=== PATIENT | female | born 1940 | race Two or more races ===

== ENCOUNTER 2023-02-22 11:15 | Inpatient (IN) | payer OTHER ==
[~2023-02-22] VITALS: Ht 160 cm; Wt 63.4 kg
[2023-02-22 11:36] LABS: Basophils # (auto) 0.1 10 ^3/uL (0-0.2); Eosinophils # (auto) 0.2 10 ^3/uL (0-0.8); Eosinophils % (auto) 3.4 % (0.0-7.0); Hematocrit 36.9 % (36.0-46.0); Hemoglobin 12.5 g/dL (12.2-16.2); Lymphocytes # (auto) 1.4 10 ^3/uL (0.4-5.4); Lymphocytes % (auto) 24.5 % (10.0-50.0); Mean Corpuscular Hemoglobin 32.8 pg (28.0-32.0); Mean Corpuscular Hgb Conc. 33.9 g/dL (32.0-36.0); Mean Corpuscular Volume 96.8 fL (80.0-100.0); Monocytes # (auto) 0.3 10 ^3/uL (0-1.3); Monocytes % (auto) 5.5 % (0.0-12.0); Neutrophils # (auto) 3.8 10 ^3/uL (1.6-8.6); Neutrophils % (auto) 65.6 % (37.0-80.0); Nucleated Red Blood Cells % 0.1 %; Red Blood Cells 3.81 10^6/uL (4.0-5.20); Red Cell Distribution Width 14.1 % (11.8-14.3); White Blood Cell 5.8 10^3/uL (4.4-10.8)
[2023-02-22 12:07] LABS: Albumin 3.9 g/dL (3.4-5.0); BUN/Creatinine Ratio 38.3 (10.0-20.0); Bilirubin, Total 0.5 mg/dL (0.2-1.0); Calcium 8.7 mg/dL (8.5-10.1); Magnesium 2.4 mg/dL (1.6-2.6); Total Protein 6.9 g/dL (6.4-8.2)
[2023-02-22 12:35] LABS: Potassium 3.7 mmol/L (3.5-5.1)
[2023-02-22 12:54] LABS: Urine Bacteria NONE SEEN /hpf (None Seen); Urine Blood 2+ /uL (Negative); Urine Specific Gravity 1.015 (1.001-1.035); Urine WBC 28 /hpf (0 - 5)
[2023-02-22] MEDS ORDERED: cefTRIAXone 1GM/50ML D5W 50 ML IV ONE (17:00)
[2023-02-22] MEDS ORDERED: PANT40T PO (17:36)
[2023-02-22] MEDS ORDERED: DONE5TAB80 PO (17:36)
[2023-02-22] MEDS ORDERED: [UNRECOGNIZED DRUG - CODE] EACHEYE (17:36)
[2023-02-22] MEDS ORDERED: BACL10TA PO (17:37)
[2023-02-22] MEDS ORDERED: PRED20TA2 PO (17:37)
[2023-02-22] MEDS ORDERED: AZIT250T9 PO (17:37)
[2023-02-22] MEDS ORDERED: ACETAMINOPHEN 325 MG TAB PO PRN (17:45)
[2023-02-22] MEDS ORDERED: ASPirin 325 MG TAB PO ONE (17:45)
[2023-02-22] MEDS ORDERED: MORPHINE SULFATE INJ 2 MG/ml SYRG IV PRN (17:45)
[2023-02-22] MEDS ORDERED: NITROGLYCERIN 0.4 MG SL TAB SL PRN (17:45)
[2023-02-22] MEDS: ASPirin 81 mg TAB PO SCH (17:54)
[2023-02-22] MEDS: SODIUM CHLORIDE 0.9% 1,000 ML IV SCH (17:57)
[2023-02-22] MEDS ORDERED: PRAV20TA3 GT (18:04)
[2023-02-22 19:53] LABS: Cholesterol 164 mg/dL (< 200)
[2023-02-22 19:56] LABS: HDL Cholesterol 76 mg/dL (40-59); LDL Cholesterol 74 mg/dL (< 100); Triglycerides 133 mg/dL (< 150)
[2023-02-22] MEDS: TEMAZEPAM 15 MG CAP PO PRN (23:23)
[2023-02-23 06:27] LABS: Basophils # (auto) 0 10 ^3/uL (0-0.2); Basophils % (auto) 0.9 % (0.0-2.0); Eosinophils # (auto) 0.3 10 ^3/uL (0-0.8); Hematocrit 35.5 % (36.0-46.0); Hemoglobin 11.8 g/dL (12.2-16.2); Lymphocytes # (auto) 1.6 10 ^3/uL (0.4-5.4); Lymphocytes % (auto) 32.9 % (10.0-50.0); Mean Corpuscular Hemoglobin 32.1 pg (28.0-32.0); Mean Corpuscular Hgb Conc. 33.2 g/dL (32.0-36.0); Mean Corpuscular Volume 96.8 fL (80.0-100.0); Monocytes # (auto) 0.4 10 ^3/uL (0-1.3); Monocytes % (auto) 7.5 % (0.0-12.0); Neutrophils # (auto) 2.5 10 ^3/uL (1.6-8.6); Neutrophils % (auto) 51.7 % (37.0-80.0); Red Blood Cells 3.67 10^6/uL (4.0-5.20); White Blood Cell 4.9 10^3/uL (4.4-10.8)
[2023-02-23] MEDS: SODIUM CHLORIDE 0.9% 1,000 ML IV SCH ×2 (06:27→16:20)
[2023-02-23 06:51] LABS: Potassium 3.6 mmol/L (3.5-5.1)
[2023-02-23 07:10] LABS: Albumin 3.3 g/dL (3.4-5.0); BUN/Creatinine Ratio 32.8 (10.0-20.0); Bilirubin, Total 0.5 mg/dL (0.2-1.0); Calcium 8.4 mg/dL (8.5-10.1); Total Protein 6.4 g/dL (6.4-8.2)
[2023-02-23] MEDS: cefTRIAXone 1GM/50ML D5W 50 ML IV SCH (09:40)
[2023-02-23] MEDS: ENOXAPARIN SOD 40 MG/0.4 ML SYRINGE SC SCH (11:22)
[2023-02-23 17:00] VITALS: BP 131/56
[2023-02-23] MEDS: TEMAZEPAM 15 MG CAP PO PRN (21:03)
[2023-02-23 22:30] VITALS: BP 121/44
[2023-02-24 04:44] VITALS: BP 125/52
[2023-02-24] MEDS: ASPirin 81 mg TAB PO SCH (08:59)
[2023-02-24] MEDS: ENOXAPARIN SOD 40 MG/0.4 ML SYRINGE SC SCH (08:59)
[2023-02-24] MEDS: cefTRIAXone 1GM/50ML D5W 50 ML IV SCH (08:59)
[2023-02-24 09:00] VITALS: BP 142/53
[2023-02-24 09:39] LABS: Alcohol, Urine < 3.0 mg/dL (0-10); Amphetamine Screen, Urine NEGATIVE (NEGATIVE); Barbiturate Scree,Urine NEGATIVE (NEGATIVE); Benzodiazephine Screen, Urine NEGATIVE (NEGATIVE); Cannabinoid Screen, Urine NEGATIVE (NEGATIVE); Cocaine Screen, Urine NEGATIVE (NEGATIVE); Opiate Scree,Urine NEGATIVE (NEGATIVE); Phencyclidine Screen, Urine NEGATIVE (NEGATIVE)
[2023-02-24] MEDS ORDERED: CIPR-173 PO (10:23)
== END 2023-02-24 12:09 | disposition home or self-care (01) | DRG 309 ==
LOC: ER 11:15 → TELE 17:35 → TELE-EAST 02-23 15:45
PROVIDERS: ADMIT Nurse Practitioner Family; ATTEND Family Medicine
DX: R00.2 Palpitations (principal); I50.32 Chronic diastolic (congestive) heart failure; N30.00 Acute cystitis without hematuria; Z96.651 Presence of right artificial knee joint; E78.00 Pure hypercholesterolemia, unspecified; E03.9 Hypothyroidism, unspecified; Z87.442 Personal history of urinary calculi; Z88.0 Allergy status to penicillin; Z80.0 Family history of malignant neoplasm of digestive organs
CPT/HCPCS: 36415; 70450; 71045; 80053; 80061; 80307; 81001; 83735; 84443; 84484; 85025; 87086; 87088; 87186; 93005; 93306; 93886; G0378; J0696

== ENCOUNTER → 2024-06-11 | Outpatient (CLI) | payer OTHER ==
[~2024-06-11] MED LIST: AZIT-43 PO; BACL10TA PO; CIPR-173 PO; DONE5TAB80 PO; PANT40T PO; PRAV20TA3 GT; PRED20TA2 PO; [UNRECOGNIZED DRUG - CODE] EACHEYE
[2024-06-11 09:25] LABS: Basophils # (auto) 0 10 ^3/uL (0-0.2); Basophils % (auto) 0.9 % (0.0-2.0); Eosinophils # (auto) 0.3 10 ^3/uL (0-0.8); Eosinophils % (auto) 5.3 % (0.0-7.0); Hematocrit 39.2 % (36.0-46.0); Hemoglobin 13.3 g/dL (12.2-16.2); Lymphocytes # (auto) 1.5 10 ^3/uL (0.4-5.4); Lymphocytes % (auto) 30.8 % (10.0-50.0); Mean Corpuscular Hemoglobin 32.7 pg (28.0-32.0); Mean Corpuscular Volume 96.2 fL (80.0-100.0); Monocytes # (auto) 0.3 10 ^3/uL (0-1.3); Monocytes % (auto) 6.7 % (0.0-12.0); Neutrophils # (auto) 2.8 10 ^3/uL (1.6-8.6); Neutrophils % (auto) 56.3 % (37.0-80.0); Platelet Count (auto) 222 10^3/uL (140-450); Red Blood Cells 4.07 10^6/uL (4.0-5.20); Red Cell Distribution Width 13.9 % (11.8-14.3); White Blood Cell 4.9 10^3/uL (4.4-10.8)
[2024-06-11 09:57] LABS: Alanine Aminotransferase 13 U/L (7-40); Albumin 4.2 g/dL (3.2-4.8); Alkaline Phosphatase 78 U/L (46-116); Anion Gap 6 (5-15); Aspartate Aminotransferase 21 U/L (13-40); BUN/Creatinine Ratio 26.5 (10.0-20.0); Bilirubin, Total 0.4 mg/dL (0.2-1.0); Blood Urea Nitrogen 22 mg/dL (9-23); Calcium 9.5 mg/dL (8.7-10.4); Carbon Dioxide 29 mmol/L (20-30); Chloride 107 mmol/L (98-107); Cholesterol 162 mg/dL (< 200); Glucose 89 mg/dL (74-106); HDL Cholesterol 63 mg/dL (40-59); LDL Cholesterol 85 mg/dL (< 100); Potassium 4.8 mmol/L (3.5-5.1); Sodium 142 mmol/L (136-145); Total Protein 7.1 g/dL (5.7-8.2); Triglycerides 82 mg/dL (< 150)
== END | disposition home or self-care (01) ==
LOC: LAB 09:10
PROVIDERS: ATTEND Student in an Organized Health Care Education/Training Program
DX: E78.5 Hyperlipidemia, unspecified (principal); M85.851 Other specified disorders of bone density and structure, right thigh
CPT/HCPCS: 36415; 80053; 80061; 85025

== ENCOUNTER 2025-06-27 08:34 | Outpatient (CLI) | payer OTHER ==
--- NOTE | 2025-06-27 10:41 | DVH ---
US US GUIDANCE FOR NEEDLE PLACEME, HISTORY: LEFT LOBE 3.1CM PROCEDURE: An informed consent was obtained. Limited localization ultrasound of the thyroid gland was obtained. The left neck base was prepped with chlorhexidine which was allowed to dry and draped in t he usual sterile fashion. Timeout was performed. The skin and soft tissues were infiltrated with 1% X ylocaine. With ultrasound guidance, 3 core needle biopsies of the nodule were obtained using an 18 g auga Biopince device. The neck was cleaned and a sterile band-aid applied. The specimens were sent to pathology for analysis. No immediate complication was identified. FINDINGS: 3 cm mid pole, solid left thyroid nodule. Limited ultrasound of the thyroid during the bi opsy demonstrates biopsy needle within nodule . IMPRESSION: Ultrasound core biopsy of left thyroid nodule . Pathology results pending.
== END 2025-06-27 17:00 | disposition home or self-care (01) ==
LOC: US 08:34
PROVIDERS: ATTEND Licensed Practical Nurse
DX: E04.1 Nontoxic single thyroid nodule (principal); E07.9 Disorder of thyroid, unspecified; Z82.61 Family history of arthritis; Z80.0 Family history of malignant neoplasm of digestive organs; Z88.0 Allergy status to penicillin
CPT/HCPCS: 60100; 76942